=== PATIENT | male | born 1980 | race Caucasian/White ===

== ENCOUNTER 2018-11-14 10:42 | Emergency (ER) | payer OTHER ==
[2018-11-14] MEDS ORDERED: OXYCODONE/APAP 5/325 TAB PO ONE (11:28)
[2018-11-14] MEDS ORDERED: OXYCODONE/APAP 5/325 TAB ONE (11:29)
--- NOTE | 2018-11-14 12:10 | EDPHY ---
General - History Smoking Status: Never smoked Time Seen by Provider: 11/14/18 11:55 Narrative: 1231: I assessed this patient at the request of GLADIS Bernstein to perform a conscious sedation for a dislocated shoulder. Procedure: Conscious sedation. Indication: Left dislocated shoulder reduction I was asked by GLADIS Bernstein to perform procedural sedation. The patient is an appropriate candidate to tolerate procedural sedation. The patient's vitals signs and mental status are appropriate. The risks, benefits and alternatives of the sedation were discussed with the patient. The patient is ASA classification 2. The patient's Mallampati airway score was 2 and the patient did meet the 3-3-2 airway measurements. A time out was completed. The patient was sedated with 100mg IV Propofol and 50mg IV Ketamine. The patient was monitored with continuous pulse oximetry, classroom monitor and end tidal CO2. There were no complications and no significant hypoxemia. I performed the sedation. The total time I spent at the bedside during the procedural sedation was 20 minutes. The patient was examined after the procedural sedation and has returned to their pre-sedation baseline with normal vital signs and a normal examination. (Blu Luna) CLINICAL IMPRESSION: Left anterior shoulder dislocation ASSESSMENT/PLAN: Patient is a 38-year-old male who presents with complaint of left shoulder pain pain after sustaining a mechanical fall directly onto his left shoulder while at work. Patient is nontoxic-appearing, he is mildly uncomfortable appearing on arrival. Physical exam reveals likely dislocation; shoulder x-ray confirms left anterior dislocation without evidence of other acute bony abnormality. The shoulder was reduced under conscious sedation, under the direct supervision of Dr. Luna. Repeat xray shows successful reduction. There was no evidence of acute fracture, persistent/recurrent dislocation, compartment syndrome or neurovascular compromise. His history and physical examination is most consistent with acute left anterior shoulder dislocation. Post-reduction the patient was placed in a sling , CMS intact. He will follow-up with work comp, an Ortho referral was also provided. Return precautions discussed-patient to return to the emergency Department for significantly worsening or uncontrolled pain, significant swelling, numbness or tingling of the extremity, paleness or coolness of her digits, fever or for any other concerning symptom. The patient verbalizes understanding and she is in agreement with this plan. DIFFERENTIAL DX: Dislocation, fracture, AC separation, strain, compartment syndrome, neurovascular compromise ED PROCEDURES: Procedure: Dislocation reduction. The left shoulder was reduced in the usual fashion without complications. Post reduction the patient's neurovascular exam is normal. Post reduction x-ray demonstrates reduction of the joint to the anatomic position. The procedure was performed by myself and Dr. Luna. ED COURSE: 1200: X-rays reviewed with Dr. Luna, will plan for sedation and reduction. CHIEF COMPLAINT: Left shoulder pain HPI: Patient is a 38-year-old male with significant medical history of asthma who presents to the emergency department complaining of left shoulder plain after sustaining a fall directly onto his lateral left shoulder. Patient reports shortly prior to arrival he tripped, causing him to fall directly onto his right shoulder. He immediately experienced pain and was unable to lift the arm. He denies any neck or back pain. He denies any low elbow or distal arm pain. He denies any numbness or tingling of extremities. No history of injury to this arm. Patient is not taking anything for pain prior to arrival. PAST MEDICAL HISTORY: Asthma Family History: Not contributory Social History: Denies illicit drug use ROS: A full 10 point review of systems was negative except for those mentioned in HPI. PHYSICAL EXAM: General Appearance: Well developed, mildly uncomfortable appearing. HENT: TMs are clear bilaterally no perforation or FB, no injection, no evidence of serous or mucopurulent otitis. Oropharynx clear is no erythema or exudates, no tonsillar hypertrophy or asymmetry. Dentition without abnormality. Eyes: PERRLA, no acute vision change, nystagmus, swelling, discharge, pain or photosensitivity. Conjunctiva pink, no pallor or injection. Respiratory: There are no retractions, lungs are clear to auscultation. No chest wall tenderness. Cardiac: Regular rate and rhythm, no murmurs or gallops. Gastrointestinal: Abdomen is soft, nontender, bowel sounds normal, no masses/ hernia, no rigidity, guarding or focal peritoneal findings. Skin: Warm, dry, no rashes, no nodules on palpation. Upper Extremities: No clavicle tenderness or deformity. Obvious deformity to the left shoulder, appears to be anterior dislocated. No increased warmth on palpation. No abrasions, ecchymosis. Limited ROM to flexion/extension/abduction/adduction, pain elicited with all movement. 2+ radial pulses with capillary refill < 2 seconds. Upper arm compartment is soft, left elbow is nontender with full range of motion. Patient is able to supinate and pronate without difficulty. 5/5 strength at fingers, wrist, elbow. Resisted wrist extension (radial nerve): normal. Resisted thumb opposition ( median nerve): normal. Resisted finger abduction (ulnar nerve): normal. Sensation intact throughout. Neck: FROM intact to flexion/extension/rotational movement. No midline tenderness. No step-off or deformity. Back: No step-off, palpable bony abnormality, edema, erythema or ecchymosis of the cervical, thoracic or lumbar spines. Thoracic and lumbar spines with no midline or paraspinal muscle tenderness to palpation. Full range of motion of all spines. 5/5 and equal strength of the UEs and LEs bilaterally including shoulder shrug ( except right shoulder as mentioned above). Pulses: 2+ and equal radial, DP and PT pulses bilaterally. Sensation intact and symmetric to light touch from face, UEs and LEs bilaterally. MEDICAL DECISION MAKING: Patient was seen independently. Secondary supervising physician at time of evaluation was Dr. Luna. Diagnosis: Left anterior shoulder dislocation. New, requires workup Summary: See Assessment and Plan for summary of ED visit. Clinical lab tests: Not applicable. Independent visualization of images, tracing, or specimens: Yes. Decision to obtain medical records or history from someone other than the patient: No Review / Summarize previous medical records: None available Discussed patient with another provider: Yes, Dr. Luna Patient Progress: Stable, discharged. (Keesha Bernstein) - Objective Vital Signs: Initial Vital Signs Temperature (C) 36.7 C 11/14/18 11:10 Heart Rate 94 11/14/18 11:10 Respiratory Rate 16 11/14/18 11:10 Blood Pressure 139/92 H 11/14/18 11:10 O2 Sat (%) 95 11/14/18 11:10 O2 Delivery Mode [Post Room Air Procedure 4th] O2 Delivery Mode [Post Room Air Procedure 3rd] O2 Delivery Mode [Post Non-Rebreather Mask Procedure 2nd] O2 Delivery Mode [Post Non-Rebreather Mask Procedure 1st] O2 Delivery Mode [Procedural Non-Rebreather Mask 1st] O2 Delivery Mode [.Immediate Non-Rebreather Mask Pre-Procedure] O2 Delivery Mode Room Air O2 (L/minute) [Post Procedure 15 2nd] O2 (L/minute) [Post Procedure 15 1st] O2 (L/minute) [Procedural 1st] 15 O2 (L/minute) [.Immediate Pre- 15 Procedure] O2 (L/minute) 15 Allergies/Adverse Reactions: Penicillins Allergy (Severe, Verified 11/14/18 11:10) Home Medications: Medication Instructions Recorded ALBUTEROL SULFATE 10/13/10 Hydrocodone/APAP 5/325 [Caruthers 1 - 2 tab PO Q4H PRN #10 tab 11/14/18 5/325 (*)] Medications Given: Discontinued Medications Ketamine HCl (Ketamine) 50 mg IVP EDNOW ONE Stop: 11/14/18 12:31 Last Admin: 11/14/18 12:34 Dose: 50 mg Oxycodone/Acetaminophen (Percocet 5/325) 1 tab PO EDNOW ONE Stop: 11/14/18 11:29 Last Admin: 11/14/18 11:30 Dose: 1 tab Propofol (Diprivan) 100 mg IVP EDNOW ONE Stop: 11/14/18 12:31 Last Admin: 11/14/18 12:35 Dose: 100 mg Departure - Departure Disposition: Home, Routine, Self-Care Clinical Impression: Dislocation of shoulder, left, closed Condition: Good Instructions: Shoulder Dislocation (ED) Additional Instructions: DISCHARGE INSTRUCTIONS FROM YOUR DOCTOR Thank you for visiting our emergency department today. Please keep in mind that discharge from the emergency department does not mean that there is nothing wrong - it simply means that we have not identified an emergency condition that requires further evaluation or treatment in the hospital. It is very important that you follow up with your work comp doc, you have also been provided a referral for orthopedic surgery. Please call to schedule appointment with both. Rest, no heavy lifting, pushing, pulling, carrying with the affected arm. Apply ice on and off to the painful area, whichever feels better. Wear the sling as applied on and off as applied until follow-up. Gentle range of motion exercises several times daily to prevent your shoulder from stiffening up -- pendulum exercises as we discussed. Avoid prolonged immobilization as we discussed as shoulder injuries are prone to "frozen shoulder" which is a significant complication and requires intensive physical therapy to rehabilitate. For pain control: You may take Tylenol, I recommend 500-1000 mg every 6-8 hours as needed. Take with food and a full glass of water. Stop taking if this is upsetting her stomach. Do not exceed 4000 mg in a 24 hr period. You may also take ibuprofen, recommend 400 mg every 6 hr. Take with food and a full glass of water. Stop taking if this upsets her stomach. Do not exceed 2400 mg in a 24 hr period. You have been prescribed Caruthers which is a narcotic. Please do not drive or operate machinery while taking this medication as it may make you drowsy. It may also be habit forming. This medication can also cause constipation, recommend taking 100 mg of Colace twice daily while taking this medication. This medication also contains Tylenol, please do not take other Tylenol containing products with this medication. Continue your regular medication as prescribed. Call and schedule with a primary care provider for a follow-up appointment and to establish care for your primary care needs. Return for increased or unmanageable pain, inability to move the shoulder or neck, fever, chills, redness, warmth, swelling, numbness, tingling or weakness of the arm, loss of veterinary technician strength, coolness of the fingertips, chest pain, shortness of breath, or for any other new, worsening or worrisome symptoms. People present with illnesses and injuries in different ways, and it is always possible that we have missed something. You may always return for re-evaluation if symptoms worsen or if they are not improving or if you develop new/different symptoms. Again, thank you for choosing our emergency department. We hope that you feel better. Referrals: ME[facility] NORIEGA [Other] - As per Instructions Orlando Cook MD [Medical Doctor] - 2-3 days, call for appt. Prescriptions: Hydrocodone/APAP 5/325 [Caruthers 5/325 (*)] 1 - 2 tab PO Q4H PRN #10 tab PRN Reason: Pain, Moderate
[2018-11-14] MEDS ORDERED: KETAMINE 200 MG/20 ML VIAL ONE (12:21)
[2018-11-14] MEDS ORDERED: PROPOFOL 200 MG/20 ML VIAL ONE (12:21)
[2018-11-14] MEDS ORDERED: KETAMINE 500 MG/10 ML VIAL IVP ONE (12:30)
[2018-11-14] MEDS ORDERED: PROPOFOL 200 MG/20 ML VIAL IVP ONE (12:30)
[2018-11-14 13:34] VITALS: BP 147/95
== END 2018-11-14 13:34 | disposition home or self-care (01) ==
PROC: 0RSKXZZ Reposition Left Shoulder Joint, External Approach (ICD-10-PCS; principal; 2018-11-14)
DX: S43.015A Anterior dislocation of left humerus, initial encounter (principal); W01.0XXA Fall on same level from slipping, tripping and stumbling without subsequent striking against object, initial encounter; Y99.0 Civilian activity done for income or pay
CPT/HCPCS: J2704